=== PATIENT | male | born 1990 | race Caucasian/White ===

== ENCOUNTER 2018-10-04 12:19 | Emergency (ER) | payer OTHER ==
[~2018-10-04] VITALS: Ht 170.2 cm; Wt 68.0 kg
[~2018-10-04 12:19] MED LIST: ACETAMINOPHEN-1 EAC1 PO; BACTRIM DS TAB1 EACH PO; HYDROCODONE-APA1 TA1 PO; IBUPROFEN 600600 M1 PO; KEFLEX500 MG PO; LIORESAL 10 MG10 MG PO; NOHOMEMEDICATIONS; PERCOCET 5-3251 EACH PO; PERCOCET 7.5-31 EACH PO; PHENERGAN 25 MG25 M1 PO; SEROQUEL 100 M100 M2 PO; TRAMADOL 50 MG50 MG PO
[2018-10-04] MEDS ORDERED: ULTRAM 50MG TAB50 MG PO (13:51)
[2018-10-04 13:58] VITALS: BP 129/81
== END 2018-10-04 13:59 | disposition home or self-care (01) ==
LOC: M.ERS 12:19
DX: S62.396A Other fracture of fifth metacarpal bone, right hand, initial encounter for closed fracture (principal); F17.210 Nicotine dependence, cigarettes, uncomplicated; Z88.8 Allergy status to other drugs, medicaments and biological substances; Z88.5 Allergy status to narcotic agent; W22.8XXA Striking against or struck by other objects, initial encounter; Y92.89 Other specified places as the place of occurrence of the external cause; Y93.89 Activity, other specified; Y99.8 Other external cause status